=== PATIENT | female | born 1995 | race Caucasian/White ===

== ENCOUNTER 2018-11-04 05:41 | Day surgery (SDC) | payer BC, OTHER ==
[~2018-11-04] VITALS: Ht 157.5 cm; Wt 65.3 kg
[~2018-11-04 05:41] MED LIST: FLUO20CA38; LAMO100T83; TOPI50TA16; TRILEPTAL
[2018-11-04 06:23] VITALS: Ht 157.5 cm; Wt 65.3 kg
[2018-11-04] MEDS ORDERED: ALBUTEROL (06:42)
[2018-11-04] MEDS ORDERED: ASPIRIN (06:42)
[2018-11-04] MEDS ORDERED: LEXAPRO (06:42)
[2018-11-04 06:52] VITALS: BP 99/56; PULSE 77; RESP 12
[2018-11-04] MEDS ORDERED: FENTAnyl 50 MCG/ML VIAL ONE (07:59)
[2018-11-04] MEDS ORDERED: MIDAZOLAM 1 MG/ML 2 ML INJ ONE ×3 (07:59)
[2018-11-04 08:20] VITALS: BP 99/62; RESP 16
--- NOTE | 2018-11-04 10:17 | CONS ---
DATE OF ADMISSION: 11/04/2018 DATE OF CONSULTATION: PATIENT NAME: ARIADNE MORRIS TYPE OF CONSULTATION: Preoperative gastroenterology. Dear Dr. Thacker, I thank you very much for this kind referral. HISTORY OF PRESENT ILLNESS: Ms. Ariadne Morris, is a 23-year-old female patient who has been referr ed to me for further evaluation of persistent hiccups. No past history of gastroesophageal reflux di sease. The patient has tried Zantac and Tums without relief. No upper abdominal pain. No history o f peptic ulcer disease. Not on nonsteroidal anti-inflammatory agents. No history of gallstones or l iver disease. No change in the bowel habit or rectal bleeding. No history of inflammatory bowel dis ease. Not a hypertensive or diabetic. No heart disease, lung problem or kidney disease. SOCIAL HISTORY: Nonsmoker. No alcohol abuse. FAMILY HISTORY: No family history of gastrointestinal tract neoplasm. ALLERGIES: NO DRUG ALLERGIES. MEDICATIONS: Lexapro for mood swings. PHYSICAL EXAMINATION: VITAL SIGNS: She is 5 feet 2 inches tall and weighs 135 pounds. HEART: Normal heart sounds. LUNGS: Clear. ABDOMEN: Soft, no masses. Normal bowel sounds. NEUROLOGIC: Normal neurological exam. IMPRESSION: 1. Persistent hiccups. 2. Rule out gastroesophageal reflux disease with esophageal irritation and stimulation of the diaphr agm. 3. The patient is on Lexapro. PLAN: 1. Endoscopic examination to rule out reflux esophagitis. 2. Would also recommend a chest x-ray and possible abdominal ultrasound. The procedure and possible complications are well explained to the patient. She understands and cons ents to the procedure. I thank you once again. With warmest personal regards, Dictated By: HARRIS DE LA GARZA/BEE Conf#: [id number] DID#: [id number]
== END 2018-11-04 15:51 | disposition home or self-care (01) ==
LOC: GIL 05:41
PROVIDERS: ATTEND Internal Medicine Gastroenterology
DX: K21.9 Gastro-esophageal reflux disease without esophagitis (principal); K29.60 Other gastritis without bleeding
CPT/HCPCS: 43239; 84703; 88305; J2250; J3010; Z7610